=== PATIENT | male | born 1960 | race Caucasian/White ===

== ENCOUNTER 2017-07-09 16:31 | Emergency (ER) | payer OTHER ==
[2017-07-09 16:47] VITALS: BP 111/76
--- NOTE | 2017-07-09 17:39 | RAD ---
INDICATION: Chest pain COMPARISON: March 23, 2016 TECHNIQUE: PA and lateral dual-energy views were obtained. FINDINGS: Bones/Soft Tissues: There are no acute bony findings. Cardiomediastinal: The cardiomediastinal silhouette is normal. Lungs: There are no infiltrates. Pleura: There are no pleural effusions. Other: None IMPRESSION: NORMAL CHEST.
--- NOTE | 2017-07-09 17:55 | UC ---
Respiratory Complaint HPI - HPI Summary HPI Summary: 57 yo WM presents with body aches, pleuritic chest pain, and tooth pain. He tells me that 4 days ago he felt fatigued and had body aches. Soon after that he began have intermittent pleuritic chest pain in his central chest when breathing deeply. He also has an "infection" to his upper gums above teeth 9 and 8. He tells me that he has a history of afib, but it has been controlled for a number of years s/p ablation. Denies fever, chills, cough, SOB, abdominal pain, n/v/d/c, dizziness, weakness. Currently he is in no pain. - History of Current Complaint Chief Complaint: UCRespiratory Stated Complaint: chest congestion, and aches Time Seen by Provider: 07/09/17 17:09 Onset/Duration: Gradual Onset Timing: Constant Severity Currently: None Pain Intensity: 0 - Allergies/Home Medications Allergies/Adverse Reactions: Allergies Allergy/AdvReac Type Severity Reaction Status Date / Time [facility] Allergy Anaphylatic Uncoded 07/09/17 17:14 Shock Home Medications: Home Medications Aspirin TAB* [Aspirin 325 MG TAB*] 325 mg PO DAILY 07/09/17 [History Confirmed 07/09/17] Multivitamin [Once Daily] 1 each PO DAILY 07/09/17 [History Confirmed 07/09/17] Omeprazole CAP* [Prilosec CAP* 20 MG] 20 mg PO DAILY 07/09/17 [History Confirmed 07/09/17] PMH/Surg Hx/FS Hx/Imm Hx Cardiovascular History: Atrial Fibrillation GI/ History: Gastroesophageal Reflux Psychological History: Anxiety - Surgical History Surgical History: Yes Surgery Procedure, Year, and Place: LT HAND SURGERY /FOREARM- A TEEN. BENIGN TUMOR REMOVED FROM LEFT CHEST. Knee surgery-right knee X2. ABLASION . LEFT HAND FINGERS AMPUTATED AND PUT BACK ON-SCREWS REMOVED. Ablation for afib. - Family History Known Family History: Negative: Cardiac Disease, Hypertension, Diabetes - Social History Alcohol Use: None Alcohol Amount: quit May 2015 Substance Use Type: None Substance Use Comment - Amount & Last Used: once a week Smoking Status (MU): Former Smoker Type: Smokeless Tobacco Amount Used/How Often: 1-1 1/2 CANS/week X OFF AND ON 34 YEARS. Quit May 2015 - Immunization History Most Recent Influenza Vaccination: never Most Recent Tetanus Shot: unknown Most Recent Pneumonia Vaccination: never Review of Systems Constitutional: Fatigue, Other - Body aches Skin: Negative Eyes: Negative ENT: Negative Respiratory: Other - pleuritic chest pain Cardiovascular: Negative Gastrointestinal: Negative Genitourinary: Negative Motor: Negative Neurovascular: Negative Musculoskeletal: Negative Neurological: Negative Psychological: Negative All Other Systems Reviewed And Are Negative: Yes Physical Exam Triage Information Reviewed: Yes Appearance: Well-Appearing, No Pain Distress, Well-Nourished Vital Signs: Initial Vital Signs Temp 100.1 F 07/09/17 16:40 Pulse 74 07/09/17 16:40 Resp 16 07/09/17 16:40 BP 111/76 07/09/17 16:40 Pulse Ox 98 07/09/17 16:40 Vital Signs Reviewed: Yes Eyes: Positive: Conjunctiva Clear, Other: - EOMI. PERRLA. Negative: Conjunctiva Inflamed, Discharge ENT: Positive: Hearing grossly normal, Pharynx normal, TMs normal, Dental tenderness, Uvula midline. Negative: Pharyngeal erythema, Nasal congestion, Nasal drainage, TM bulging, TM dull, TM red, Tonsillar swelling, Tonsillar exudate, Sinus tenderness Dental: Positive: Gross Decay/Caries @ - Throughout, Abscess @ - Tooth 9 and 8, Cellulitis @ - tooth 9 and 8. Negative: Dental Fracture @, Cervical Lymphadenopathy, Bleeding Neck: Positive: Supple, Nontender, No Lymphadenopathy, Other: - FROM Respiratory: Positive: Chest non-tender, Lungs clear, Normal breath sounds, No respiratory distress, No accessory muscle use Cardiovascular: Positive: RRR, No Murmur, Pulses Normal Abdomen Description: Positive: Nontender, No Organomegaly, Soft. Negative: CVA Tenderness (R), CVA Tenderness (L), Distended, Guarding Bowel Sounds: Positive: Present Musculoskeletal: Positive: Strength Intact - B/L UEs and LEs, ROM Intact - B/L UEs and LEs, No Edema Neurological: Positive: Alert, Other: - CN II-XII grossly intact. Psychological: Positive: Age Appropriate Behavior Skin: Negative: rashes, significant lesion(s) UC Diagnostic Evaluation - Laboratory O2 Sat by Pulse Oximetry: 98 Respiratory Course/Dx - Course Course Of Treatment: EKG NSR Rate 66. No ST or TWI as read by Dr. Dave. POC flu negative. CXR: IMPRESSION: NORMAL CHEST. Other than the dental abscess, his exam is WNL and benign. I offered him the chance to be transported to the ED for a further workup including potenial lab work and advanced imaging - he declined. I will cover him with Augmentin for his dental abscess - he has an appt next week with his dentist. I also advised him to schedule a f/u appointment with his PCP within 1 week for further eval of his symptoms. If his symptoms return or worsen, he is to go to the ED. Pt voices understanding and is in agreement with this plan. - Differential Dx/Diagnosis Provider Diagnoses: Dental abscess tooth 8 and 9. Fatigue. Body aches. Pleuritic chest pain Discharge - Discharge Plan Condition: Stable Disposition: HOME Prescriptions: Amoxicillin/Clavulanate TAB* [Augmentin TAB 875*] 875 mg PO BID #20 tab Patient Education Materials: Dental Abscess (ED), Acute Bronchitis (ED) Referrals: Zain Bach INVASIVE PHYSICIAN [Primary Care Provider] - 1 Week Additional Instructions: If you develop a fever, shortness of breath, chest pain, new or worsening symptoms - please call your PCP or go to the ED.
== END 2017-07-09 18:20 | disposition home or self-care (01) ==
LOC: UCEAST 16:31
DX: K04.7 Periapical abscess without sinus (principal); R53.83 Other fatigue; M79.1 Myalgia; R07.81 Pleurodynia; I48.91 Unspecified atrial fibrillation; K21.9 Gastro-esophageal reflux disease without esophagitis; F41.9 Anxiety disorder, unspecified; Z87.891 Personal history of nicotine dependence
CPT/HCPCS: 71046; 87502; 93005; 99211; G0463

== ENCOUNTER 2019-04-18 15:54 | Emergency (ER) | payer OTHER ==
--- NOTE | 2019-04-18 18:41 | UC ---
Eye Complaint HPI - HPI Summary HPI Summary: Patient is a 59yo male presenting with c/o stye in his R lower eyelid. Patient states he "gets styes occasionally, but they always resolve with hot washcloths and baby shampoo." Patient states this one has been going on for over 1 week. Notes foreign body sensation and increased pain with closing eyes and blinking. Notes occasional drainage. Denies redness of the eye. Denies getting anything into his eye to his knowledge. Denies changes in vision. Denies photophobia. Does not wear contact lenses. Denies fever and chills. Denies n/v. - History of Current Complaint Chief Complaint: UCEye Stated Complaint: EYE ISSUE Hx Obtained From: Patient Onset/Duration: Gradual Onset, Lasting Weeks Timing: Constant Severity Initially: Mild Severity Currently: Mild Pain Intensity: 3 Pain Scale Used: 0-10 Numeric - Allergies/Home Medications Allergies/Adverse Reactions: Allergies Allergy/AdvReac Type Severity Reaction Status Date / Time [facility] Allergy Anaphylatic Uncoded 04/18/19 16:40 Shock Home Medications: Home Medications Tamsulosin CAP* [Flomax CAP*] 0.4 mg PO BEDTIME 04/18/19 [History Confirmed 08/02] PMH/Surg Hx/FS Hx/Imm Hx Cardiovascular History: Hypertension GI/ History: Gastroesophageal Reflux - Surgical History Surgical History: Yes Surgery Procedure, Year, and Place: LT HAND SURGERY /FOREARM- A TEEN. BENIGN TUMOR REMOVED FROM LEFT CHEST. Knee surgery-right knee X2. ABLASION . LEFT HAND FINGERS AMPUTATED AND PUT BACK ON-SCREWS REMOVED. Ablation for afib. - Family History Known Family History: Positive: Non-Contributory Negative: Cardiac Disease, Hypertension, Diabetes - Social History Occupation: Employed Full-time Alcohol Use: None Alcohol Amount: quit May 2015 Substance Use Type: None Substance Use Comment - Amount & Last Used: once a week Smoking Status (MU): Former Smoker Type: Smokeless Tobacco Amount Used/How Often: 1-1 1/2 CANS/week X OFF AND ON 34 YEARS. Quit May 2015 - Immunization History Most Recent Influenza Vaccination: never Most Recent Tetanus Shot: unknown Most Recent Pneumonia Vaccination: never Review of Systems All Other Systems Reviewed And Are Negative: No Constitutional: Positive: Negative. Negative: Fever, Chills Eyes: Positive: Drainage - drainage from R eye, Other - R stye. Negative: Blurred Vision, Diplopia, Eye Redness, Photophobia ENT: Positive: Negative Respiratory: Positive: Negative Cardiovascular: Positive: Negative Gastrointestinal: Positive: Negative Neurological: Positive: Negative Physical Exam Triage Information Reviewed: Yes Appearance: Well-Appearing, No Pain Distress, Well-Nourished Vital Signs: Initial Vital Signs Temp 98.9 F 04/18/19 16:35 Pulse 71 04/18/19 16:35 Resp 18 04/18/19 16:35 BP 123/83 04/18/19 16:35 Pulse Ox 98 04/18/19 16:35 Vital Signs Reviewed: Yes Eye Exam: Other - PERRLA. EOM intact Eyes: Positive: Conjunctiva Clear, Discharge - scant yellow discharge noted in R medial canthus, Other: - pus filled stye on R lower inside eyelid actively draining purulent fluid ENT: Positive: Normal ENT inspection, Hearing grossly normal, TMs normal, Uvula midline Neck exam: Normal Neck: Positive: Supple Respiratory Exam: Normal Respiratory: Positive: Lungs clear, Normal breath sounds, No respiratory distress Cardiovascular Exam: Normal Cardiovascular: Positive: RRR Neurological: Positive: Alert Psychological: Positive: Age Appropriate Behavior Skin Exam: Normal - no erythema or ecchymosis noted Eye Complaint Course/Dx - Course Course Of Treatment: Stye was actively draining, so I applied pressure with cotton swab to express more drainage. Patient also received tetracaine drops to provide temporary pain relief. Instructed to continue with warm compresses and apply antibiotic eye drops as prescribed. Instructed to follow up with ophtho for further eval if symptoms persist. Patient voiced understanding and agreed with treatment plan. - Differential Dx/Diagnosis Provider Diagnosis: Hordeolum of right lower eyelid Discharge ED - Sign-Out/Discharge Documenting (check all that apply): Patient Departure All imaging exams completed and their final reports reviewed: No Studies - Discharge Plan Condition: Stable Disposition: HOME Prescriptions: Polymyx/Trimethoprim OPTH* [Polytrim OPHTH*] 1 - 2 drop RIGHT EYE BID 7 Days #1 btl Patient Education Materials: Stye (ED) Referrals: Wilfredo Ng MD [Medical Doctor] - If Needed Additional Instructions: Place 1-2 drops of the antibiotic eye drops in your right eye twice daily for 7 days. It is important that you continue to apply warm compresses to the eye 2-3 times daily to help symptoms resolve. Follow up with the referral listed below if your symptoms worsen or do not begin to resolve within the next few days. - Billing Disposition and Condition Condition: STABLE Disposition: Home
[2019-04-18] MEDS ORDERED: Tetracaine 0.5% OPTH.SOL 4 ML* 1 DROP BTL RIGHT EYE ONE (18:52)
[2019-04-18 19:42] VITALS: BP 170/108
== END 2019-04-18 19:46 | disposition home or self-care (01) ==
LOC: UCEAST 15:54
DX: H00.012 Hordeolum externum right lower eyelid (principal); I10 Essential (primary) hypertension; Z91.013 Allergy to seafood; Z87.891 Personal history of nicotine dependence
CPT/HCPCS: 99212; A9270-GY; G0463